=== PATIENT | female | born 1945 | race Caucasian/White ===

== ENCOUNTER 2018-09-14 20:46 | Emergency (ER) | payer MEDICARE, BC ==
[2018-09-14] MEDS: Lisinopril 10 MG Tab PO ONE (22:00)
--- NOTE | 2018-09-15 05:08 | EDM.PDOC ---
ED HPI GENERAL MEDICAL PROBLEM - General Chief Complaint: General Stated Complaint: post-op hypertension Time Seen by Provider: 09/14/18 21:37 Source of Information: Reports: Patient History Limitations: Reports: No Limitations - History of Present Illness INITIAL COMMENTS - FREE TEXT/NARRATIVE: PtNicki underwent MAC and local anesthesia this AM for corneal transplant at [place]. Post operatively, her BP was approx 189/100. She states that her blood pressure has been "creeping up" in recent months. Denies any chest pain or shortness of breath. No headache. She states that she took her BP at her [facility] and it was found to be > 220 systolic. She states that her PCP has discussed starting her on a medication if her BP continues to be elevated consistently. Onset: Today Onset Date: 09/15/18 Location: Reports: Generalized - Related Data Allergies Allergy/AdvReac Type Severity Reaction Status Date / Time No Known Allergies Allergy Verified 09/14/18 21:35 Home Meds: Home Meds Aspirin 325 mg PO DAILY 09/14/18 [History] azaTHIOprine [Azathioprine] 2 tab PO DAILY 09/14/18 [History] predniSONE [Prednisone] 10 mg PO DAILY 09/14/18 [History] Past Medical History HEENT History: Reports: Impaired Vision Immunologic History: Reports: Other (See Below) Other Immunologic History: autoimmune disorder - Past Surgical History HEENT Surgical History: Reports: Other (See Below) Other HEENT Surgeries/Procedures: corneal tranplant Social & Family History - Tobacco Use Smoking Status *Q: Never Smoker ED ROS GENERAL - Review of Systems Review Of Systems: ROS reveals no pertinent complaints other than HPI. ED EXAM, GENERAL - Physical Exam Exam: See Below Exam Limited By: No Limitations General Appearance: Alert, WD/WN, No Apparent Distress Eye Exam: Bilateral Eye: EOMI, PERRL Throat/Mouth: Normal Inspection, Normal Lips, Normal Teeth, Normal Gums, Normal Oropharynx, Normal Voice, No Airway Compromise Head: Atraumatic, Normocephalic Neck: Normal Inspection, Supple, Non-Tender, Full Range of Motion Respiratory/Chest: No Respiratory Distress, Lungs Clear, Normal Breath Sounds, No Accessory Muscle Use, Chest Non-Tender Cardiovascular: Normal Peripheral Pulses, Regular Rate, Rhythm, No Edema, No Gallop, No JVD, No Murmur, No Rub Peripheral Pulses: 4+: Radial (L) Extremities: Normal Inspection, Normal Range of Motion, Non-Tender, Normal Capillary Refill, No Pedal Edema Neurological: Alert, Oriented, CN II-XII Intact, Normal Cognition, Normal Gait, Normal Reflexes, No Motor/Sensory Deficits Course - Vital Signs Last Recorded V/S: Last Vital Signs Temp 36.1 C 09/14/18 21:37 Pulse 97 09/14/18 21:37 Resp 18 09/14/18 21:37 BP 176/90 H 09/14/18 22:00 Pulse Ox 97 09/14/18 21:37 - Orders/Labs/Meds Meds: Medications Discontinued Medications Generic Name Dose Route Start Last Admin Trade Name Jarethq PRN Reason Stop Dose Admin Lisinopril 10 mg 09/14/18 21:53 09/14/18 22:00 Prinivil PO 09/14/18 21:54 10 mg ONETIME ONE Administration Departure - Departure Time of Disposition: 22:19 Disposition: Home, Self-Care 01 Condition: Good Clinical Impression: Hypertension screening - Discharge Information Instructions: Hypertension, [id number] Referrals: PCP,Not In Area [Primary Care Provider] - Forms: ED Department Discharge Additional Instructions: Home to rest. Lisinopril 10mg once daily Follow-up in clinic in next 7-10 days - Problem List Review Problem List Initiated/Reviewed/Updated: Yes - Assessment/Plan Plan: Home to rest. Lisinopril 10mg once daily Follow-up in clinic in next 7-10 days
== END 2018-09-14 22:19 | disposition home or self-care (01) ==
LOC: VM.ED 20:46
DX: R03.0 Elevated blood-pressure reading, without diagnosis of hypertension (principal); Z13.6 Encounter for screening for cardiovascular disorders; Z79.899 Other long term (current) drug therapy; Z79.82 Long term (current) use of aspirin
CPT/HCPCS: 99283; A9270